=== PATIENT | female | born 1960 | race Caucasian/White ===

== ENCOUNTER 2022-11-10 05:30 | Inpatient (IN) | payer OTHER ==
[~2022-11-10] VITALS: Ht 152.4 cm; Wt 86.2 kg
[2022-11-10] MEDS ORDERED: ACETAMINOPHEN 500 MG TABLET ONE (05:50)
[2022-11-10] MEDS ORDERED: oxyCODONE HCL 10 MG TAB.ER.12H PO ONE ×3 (05:58→07:30)
[2022-11-10] MEDS ORDERED: CELECOXIB 200 MG CAPSULE ONE (05:58)
[2022-11-10] MEDS ORDERED: SCOPOLAMINE HYDROBROMIDE 1 MG PATCH .72 H (TRANSDERM-SCOP) TD ONE ×2 (05:59→06:00)
[2022-11-10] MEDS ORDERED: GABAPENTIN 300 MG CAPSULE ONE (05:59)
[2022-11-10] MEDS ORDERED: TRANEXAMIC ACID 1,000 MG/10 ML VIAL IV ONE (06:00)
[2022-11-10] MEDS ORDERED: ACETAMINOPHEN 500 MG TABLET PO ONE (06:00)
[2022-11-10] MEDS ORDERED: CEFAZOLIN SOD 2 GM in D5W 50 ML IV ONE (06:00)
[2022-11-10] MEDS ORDERED: CELECOXIB 200 MG CAPSULE PO ONE (06:00)
[2022-11-10] MEDS ORDERED: GABAPENTIN 300 MG CAPSULE PO ONE (06:00)
[2022-11-10] MEDS ORDERED: CEFAZOLIN 2 GM IVPB PREMIX 50 ML IV ONE (06:32)
[2022-11-10] MEDS ORDERED: TRANEXAMIC ACID 1,000 MG/10 ML VIAL ONE (07:27)
[2022-11-10] MEDS ORDERED: WATER FOR IRRIGATION,STERILE 1,000 ML IRRIG.SOLN IR ONE (07:27)
[2022-11-10] MEDS ORDERED: PROPOFOL 200MG/ 20ML VIAL (DIPRIVAN) IV ONE (07:27)
[2022-11-10] MEDS ORDERED: VANCOMYCIN HCL 1000 MG/VIAL IV ONE (07:27)
[2022-11-10] MEDS ORDERED: SEVOFLURANE 15 MIN GAS INH ONE (07:27)
[2022-11-10] MEDS ORDERED: MORPHINE SULFATE 10MG/10ML PF AMP ONE (07:27)
[2022-11-10] MEDS ORDERED: NS IRRIG SOLN 1000 ML IR ONE (07:27)
[2022-11-10] MEDS ORDERED: MIDAZOLAM HCL 2 MG/2 ML VIAL (VERSED) ONE (07:27)
[2022-11-10] MEDS ORDERED: BUPIVACAINE /PF 0.25% 30 ML VIAL INJ ONE (07:27)
[2022-11-10] MEDS ORDERED: LR 1,000 ML IV.SOLN IV ONE (07:27)
[2022-11-10] MEDS ORDERED: NS 1000 ML IV.SOLN IV ONE (07:27)
[2022-11-10] MEDS ORDERED: DEXAMETHASONE SOD PHOSPHATE 4 MG/ML VIAL ONE (07:27)
[2022-11-10] MEDS ORDERED: DIPHENHYDRAMINE HCL 25 MG CAPSULE PO PRN (07:30)
[2022-11-10] MEDS ORDERED: BISACODYL 10 MG/SUPPOSITORY RC PRN (07:30)
[2022-11-10] MEDS ORDERED: LACTULOSE 20 GM/30 ML UDC PO PRN (07:30)
[2022-11-10] MEDS ORDERED: NALOXONE HCL 0.4 MG/ML AMP (NARCAN) IVP PRN ×4 (07:30→09:15)
[2022-11-10] MEDS ORDERED: METOCLOPRAMIDE HCL 10 MG/2 ML VIAL IVP PRN ×2 (07:30→09:15)
[2022-11-10] MEDS ORDERED: MORPHINE SULFATE 10MG/10ML PF AMP SP SCH (09:15)
[2022-11-10] MEDS ORDERED: DIPHENHYDRAMINE INJ 50 MG/ML VIAL IM PRN (09:15)
[2022-11-10] MEDS ORDERED: ONDANSETRON HCL 4 MG/2 ML VIAL IVP PRN ×2 (09:15→11:45)
[2022-11-10] MEDS ORDERED: ACETAMINOPHEN I.V. 1000 MG 100 ML IV ONE (09:15)
[2022-11-10] MEDS ORDERED: DIPHENHYDRAMINE INJ 50 MG/ML VIAL ONE (10:12)
[2022-11-10] MEDS ORDERED: DIPHENHYDRAMINE INJ 50 MG/ML VIAL IVP ONE (10:15)
[2022-11-10] MEDS ORDERED: ALBU2.5V7 INH (10:29)
[2022-11-10] MEDS ORDERED: DICY10SO PO (10:29)
[2022-11-10] MEDS ORDERED: FLUT16SP16 NS (10:29)
[2022-11-10] MEDS ORDERED: OMEP20CA15 PO (10:29)
[2022-11-10] MEDS ORDERED: ACET-73 PO (10:29)
[2022-11-10] MEDS ORDERED: FLUV80TA PO (10:29)
[2022-11-10] MEDS ORDERED: MONT-40 PO (10:29)
[2022-11-10] MEDS ORDERED: PARO-41 PO (10:29)
[2022-11-10] MEDS ORDERED: LORATADINE 10 MG TABLET PO PRN (11:00)
[2022-11-10] MEDS ORDERED: traMADol HCL HCL 50 MG TABLET (ULTRAM) PO PRN (11:00)
[2022-11-10] MEDS ORDERED: oxyCODONE HCL 5 MG TABLET PO PRN ×2 (11:00)
[2022-11-10] MEDS ORDERED: HYDROmorphone 1 MG/ML INJ. CARTRIDGE IVP PRN ×3 (11:00)
[2022-11-10 11:30] VITALS: BP_SYST 134
--- NOTE | 2022-11-10 12:00 | NUR ---
received pt from PACU,awake,alert,vss,S/P right total knee arthroplasty dressing in right knee with walter wrap and ice polar on use,denies pain or discomfort,needs attended,call light & personal items within pt reach,safety maintained continue to monitor pt.
[2022-11-10] MEDS ORDERED: ALBUTEROL SULFATE 0.083% 2.5 MG/3 ML VIAL.NEB INH PRN (12:45)
[2022-11-10] MEDS: ACETAMINOPHEN 500 MG TABLET PO SCH ×2 (14:00→21:30)
[2022-11-10] MEDS: KETOROLAC TROMETHAMINE 10 MG TABLET (TORADOL) PO SCH ×2 (14:00→21:30)
[2022-11-10] MEDS: ceFAZolin SODIUM 2 GM in D5W 50 ML IV SCH ×2 (14:01→21:29)
[2022-11-10] MEDS ORDERED: FLUTICASONE PROPIONATE 50 mCg/SPRAY 16 GM NS ONE (15:00)
--- NOTE | 2022-11-10 15:00 | NUR ---
pt gets sweating and nauseated,vomitting emesis in bucket,give zofran 4mg IV as prn order for nausea,changed gown,keep clean and dry,hourly rounds made safety maintained.
[2022-11-10 15:10] VITALS: BP_SYST 114
[2022-11-10 17:29] VITALS: BP_SYST 114
[2022-11-10] MEDS ORDERED: MONTELUKAST 10 MG TABLET PO SCH (18:00)
--- NOTE | 2022-11-10 18:09 | NUR ---
assisted pt out of bed and ambulated to bathroom with walker,pt voided well offered regular diet and meds due,no nausea or vomit noted.
[2022-11-10 20:00] VITALS: BP_SYST 127
--- NOTE | 2022-11-10 20:00 | NUR ---
NEUROVASCULAR Right knee with dressing dry/clean denies any pain with good peripheral sensation , able to wiggle toes, dorsiflexion, light to touch , no swelling, dorsalis pedis pulse positive, polar care/cold to right knee , pillow under the ankle safety fall precaution initiated call light within reach.
[2022-11-10] MEDS: SENNOSIDES/DOCUSATE SODIUM 1 TAB TABLET(SENOKOT-S) PO SCH (21:00)
--- NOTE | 2022-11-10 22:00 | NUR ---
OUT of bed to bedside commode no dizziness vomited once oral/perineal care given , back to bed , snack given tolerated well no nausea or vomiting
[2022-11-11 00:10] VITALS: BP_SYST 124
--- NOTE | 2022-11-11 01:22 | NUR ---
PATIENT RESTING: Patient resting quietly. No acute distress noted. right ankle elevated to pillow , able to wiggle toes, dorsiflex , denies any acute pain
[2022-11-11] MEDS: ceFAZolin SODIUM 2 GM in D5W 50 ML IV SCH (05:35)
[2022-11-11] MEDS: ACETAMINOPHEN 500 MG TABLET PO SCH (05:36)
[2022-11-11] MEDS: KETOROLAC TROMETHAMINE 10 MG TABLET (TORADOL) PO SCH (05:37)
--- NOTE | 2022-11-11 06:00 | NUR ---
Slept well as verbalized right knee feel sore but tolerable , able to get out of bed to bedside commode with out dizziness no vomiting , perineal care done, back to bed right ankle kept elevated to pillow with polar care ,safety fall precaution instructed, needs attended.
[2022-11-11 06:12] LABS: ALBUMIN 3.2 g/dL (3.4-4.8); CALCIUM 8.6 mg/dL (8.4-11.0); CREATININE 0.8 mg/dL (0.55-1.30); TOTAL BILIRUBIN 0.2 mg/dL (0.0-1.0)
[2022-11-11 07:10] LABS: BASOPHILS % (AUTO) 0.2 % (0.0-2.0); HEMOGLOBIN 10.6 g/dL (12.0-16.0); LYMPHOCYTES # (AUTO) 0.7 K/uL (1.0-5.5); LYMPHOCYTES % (AUTO) 7.4 % (20.5-51.5); MEAN CORPUSCULAR HEMOGLOBIN 29 pg (27-31); MEAN CORPUSCULAR HGB CONC 33 % (32-36); MEAN CORPUSCULAR VOLUME 86 fL (79.0-98.0); MONOCYTES # (AUTO) 0.8 K/uL (0.0-1.0); MONOCYTES % (AUTO) 8.5 % (1.7-9.3); NEUTROPHILS # (AUTO) 8.2 K/uL (1.8-7.7); NEUTROPHILS % (AUTO) 83.9 % (40.0-70.0); PLATELET COUNT (AUTO) 242 K/uL (130-430); RED BLOOD CELL COUNT(AUTO) 3.74 MIL/uL (4.2-6.2); RED CELL DISTRIBUTION WIDTH 15.2 % (9.0-15.0); WHITE BLOOD COUNT (AUTO) 9.8 K/uL (4.8-10.8)
[2022-11-11] MEDS ORDERED: ASA81 PO (07:29)
[2022-11-11 08:00] VITALS: BP_SYST 108
--- NOTE | 2022-11-11 08:12 | NUR ---
OPENING NOTES: PATIENT IN BED EATING BREAKFAST. NO S/S OF DISTRESS OR PAIN REPORTED. BREATHING IS EVEN AND UNLABORED ON RA 96%. DR HINKLE WAS AT PATIENT BEDSIDE. PATIENT BEING DISCHARGED TODAY WITH HOME HEALTH FOR PHYSICAL THERAPY. ALL NEEDS MET AT THIS TIME, SAFETY CHECKS MADE AND CALL LIGHT WITHIN REACH.
[2022-11-11] MEDS ORDERED: FLUTICASONE PROPIONATE 50 mCg/SPRAY 16 GM NS SCH (09:00)
[2022-11-11] MEDS ORDERED: ASPIRIN 81 MG TAB.CHEW PO SCH (09:00)
[2022-11-11] MEDS: SENNOSIDES/DOCUSATE SODIUM 1 TAB TABLET(SENOKOT-S) PO SCH (09:56)
[2022-11-11 09:59] VITALS: BP_SYST 116
--- NOTE | 2022-11-11 10:52 | NUR ---
patient discharged with daughter in private vehicle to home. home health set up for physical therapy. discharge forms signed. vital signs stable. patient had physical therapy twice here before she left. she walked the halls with spike from pt.
[2022-11-11] MEDS ORDERED: CELECOXIB 200 MG CAPSULE PO SCH (11:00)
--- NOTE | 2022-11-11 15:38 | NUR ---
PHYSICAL THERAPY CO-SIGN The Physical Therapy Progress Notes documented by Master Ship have been reviewed. Reviewed/Co-Signed by: Bryn Costa Documentation Done by:YULISSA CARROLL Addendum: 11/11/22 at 1538 by Bryn Costa PT Amended: Links added.
== END 2022-11-11 11:15 | disposition home health service (06) | DRG 470 ==
LOC: SMU 05:30
PROVIDERS: ADMIT Student in an Organized Health Care Education/Training Program; ATTEND Student in an Organized Health Care Education/Training Program
PROC: 0SRC0J9 Replacement of Right Knee Joint with Synthetic Substitute, Cemented, Open Approach (ICD-10-PCS; principal; 2022-11-10 07:30)
DX: M17.11 Unilateral primary osteoarthritis, right knee (principal)
CPT/HCPCS: 36415; 73560-TC; 80053; 85025; 87081; 88305; 88311; 96379; 97110-GP; 97116-GP; 97163-GP; 97530-GP; C1713; C1776; J0131; J0690; J1100; J1200; J2274; J2405; J2704; J3370; J3465; J3490; J7030; J7060; J7120